=== PATIENT | female | born 1950 | race Caucasian/White ===

== ENCOUNTER → 2022-04-09 | Outpatient (CLI) | payer MEDICARE, SELFPAY | END | disposition home or self-care (01) | LOC: LAB 15:12 | PROVIDERS: PCP Preventive Medicine Occupational Medicine; Visit Provider Preventive Medicine Occupational Medicine | DX: Z01.84 Encounter for antibody response examination (principal) | CPT/HCPCS: 36415; 86769 ==

== ENCOUNTER → 2022-11-17 | Outpatient (CLI) | payer MEDICARE, OTHER, SELFPAY ==
--- NOTE | 2022-11-17 13:57 | CT_ITS ---
EXAM: CT LEFT LOWER EXTREMITY WITHOUT INTRAVENOUS CONTRAST CLINICAL INDICATION: LEFT KNEE TECHNIQUE: Helically acquired images were obtained of the left lower extremity without intravenous contrast. 2-D reformats were performed by the technologist. CTDIvol = ( 19.32 ) mGy, DLP = ( 4127.99 ) mGycm This CT exam was performed using one or more of the following dose reduction techniques: automated exposure control, adjustment of the mA and/or kV according to patient size, and/or use of iterative reconstruction technique. This report was created using 5 Minutes report Diassess technology. COMPARISON: None. FINDINGS: Presumed preoperative planning study. No acute or healing fracture or malalignment. No unusual lytic or sclerotic lesions of bone. Severe tricompartmental osteoarthrosis involving the left knee with multiple intra-articular ossific bodies posteriorly. Meniscal chondrocalcinosis, medial and lateral. Plantar and posterior calcaneal enthesopathy. No other soft tissue abnormalities. CT/Extremity Lower without Contra IMPRESSION: Preoperative planning study showing severe tricompartmental arthrosis of the knee with multiple intra-articular ossific bodies posterolaterally. Electronically Signed: Torres Barksdale MD at 3:14 EDT ,
== END | disposition home or self-care (01) ==
LOC: CT 13:36
PROVIDERS: PCP Preventive Medicine Occupational Medicine; Referring Provider Orthopaedic Surgery; Visit Provider Orthopaedic Surgery
DX: M17.12 Unilateral primary osteoarthritis, left knee (principal)
CPT/HCPCS: 73700

== ENCOUNTER 2022-11-24 16:26 | Observation (INO) | payer MEDICARE, OTHER, SELFPAY ==
--- NOTE | 2022-11-13 13:14 | EKG12_ITS ---
Test Reason : PREOP Blood Pressure : / mmHG Vent. Rate : 075 BPM Atrial Rate : 075 BPM P-R Int : 160 ms QRS Dur : 080 ms QT Int : 388 ms P-R-T Axes : 024 -27 039 degrees QTc Int : 433 ms Normal sinus rhythm Normal ECG Confirmed by WILLAM ORDONEZ, PRANEETH ([id number]), tape editor MARIA L ZUNIGA ([id number]) on 11/17/2022 10:44:29 AM Referred By: NEREYDA Confirmed By:SERGEY QUARLES MD
[2022-11-13 13:43] LABS: Absolute Lymphocyte Count 1.98 X10^3/uL (0.83-4.51); Absolute Neutrophil Count 3.9 X10^3/uL (2.0-7.7); Basophil# 0.09 X10^3/uL; Basophil% 1.3 % (0-1); Eosinophil# 0.23 X10^3/uL; Eosinophils% 3.4 % (0-5); Hematocrit 41.3 % (37-47); Hemoglobin 13.4 g/dL (12.0-15.0); Lymphocyte # 1.98 X10^3/ul (0.83-4.51); Lymphocyte % 28.9 % (19-41); Mean Corp Hgb Conc 32.4 g/dL (32-36); Mean Corpuscular Hgb 32.8 pg (27.0-32.0); Mean Platelet Vol. 9.4 fl (6.2-12.0); Monocyte# 0.63 X10^3/uL; Monocyte% 9.2 % (0-10); NRBC Flagged by Analyzer 0 % (0-5); Neutrophil # 3.89 X10^3/uL (2.7-7.7); Neutrophil % 56.8 % (47-70); Platelet Count 282 K/mm3 (150-450); RBC Distribution Width CV 14.4 % (11.6-14.6); RBC Distribution Width SD 53.8 fl (35.1-43.9); Red Blood Count 4.09 M/mm3 (4.2-5.4); White Blood Count 6.9 K/mm3 (4.4-11.0)
[2022-11-13 13:54] LABS: Hemoglobin A1c 5.9 % (3.8-5.6)
[2022-11-13 14:15] LABS: Albumin, Serum 3.2 g/dL (3.2-5.0); Anion Gap 8 (5-15); BUN 15 mg/dL (7-18); BUN/Creat Ratio 12.7 RATIO (10-20); Calcium,Total 9.8 mg/dL (8.5-10.1); Chloride 109 mmol/L (98-107); Creatinine, Serum 1.18 mg/dL (0.55-1.02); EST Glomerular Filtration Rate 48 mL/min (>60); Est Glom Filt Rate - Afr Amer 58 mL/min (>60); Glucose 171 mg/dL (74-106); Potassium 4.1 mmol/L (3.5-5.1); Sodium Level 142 mmol/L (136-145)
[2022-11-24] VITALS (24 sets, daily range): BP systolic 96–158; BP diastolic 50–85; PULSE 66–83; RESP 12–21; TEMP 36.1–36.7; O2SAT 85–97; BMI 45.2
--- NOTE | 2022-11-24 | KNEE_PTH ---
PATIENT: JADON BETTS LOC: [facility]3 U#:[id number] AGE/SX: 72/F ROOM: [facility] [place] RE11/24/[address]: Dr. Clifford Covarrubias DO : 1950 BED: 1 DIS: 11/25/2022 SPEC #: [id number] RECD: 11/24/22 14:49 STATUS: ALEX FELIX #: [id number] RM: 11/24/22 00:[address]: Clifford Covarrubias DEPT: SURGICAL PATHOLOGY RECD BY: Wild Arguelles ENTERED: 11/25/22 10:01 SP TYPE: TOTAL KNEE OTHR DR: Dr. Scott Weller DO Tissues: Knee, NOS Procedures: Decalcification bone/plaque Surgery Specimen Level IV HEADER OPERATION: ERAS, total knee replacement robotic arm assist PRE-OP DIAGNOSIS: Left knee osteoarthritis TISSUE SUBMITTED: Left knee bone and tissue MICROSCOPIC DIAGNOSIS Bone and soft tissue, left knee, total knee replacement/resection: Pieces of bone with degenerative osteoarthritic changes. Fibroadipose tissue, fibroconnective tissue, cartilaginous tissue and reactive synovial tissue. Changes consistent with pseudogout. LUCIANA:sherry 11/28/2022 MICROSCOPIC DESCRIPTION Slides are reviewed. GROSS DESCRIPTION Received is one container designated bone and soft tissue left knee. The specimen consists of multiple fragments of gomez-yellow bone measuring in aggregate 11.0 x 10.0 x 3.5 cm. Also in the specimen container are multiple fragments of yellow-white soft tissue and predominantly fibrocartilaginous tissue measuring in aggregate 5.5 x 2.0 x 1.0 cm. A number of bony fragments contain articular surfaces consistent with tibial plateau and femoral condyle and displaying prominent osteophyte formation, eburnation and bone erosion. Cost And Sales Record Supervisor sections are submitted in two cassettes as follows: 1 - soft tissue, 2 - bone after decalcification. / LUCIANA:sherry 11/25/2022 TC:5 CPT: 10147, 53706
[2022-11-24] MEDS: Acetaminophen 500 MG Tablet 1000 MG PO ×2 (09:01→21:45)
[2022-11-24] MEDS: Gabapentin 600 MG Tablet PO (09:02)
[2022-11-24 09:05] LABS: Bedside Glucose 146 mg/dL (74-106)
[2022-11-24] MEDS: Lactated Ringers 1,000 ML 15 ML IV (09:06)
[2022-11-24] MEDS: Magnesium 1 GM over 15 mins IV (09:20)
[2022-11-24] MEDS: Clindamycin 900 MG/50 ML BAG 75 MG IV ×2 (10:30→15:01)
[2022-11-24] MEDS: TXA 1000mg in NS100 100ml (IVPB at Incision) 660 MG IV (10:45)
[2022-11-24] MEDS: JPS (Morphine 10mg/ml) OPERA.SITE (11:34)
[2022-11-24] MEDS: TXA 1000mg in NS100 100ml (IVPB at Closure) 660 MG IV (11:53)
--- NOTE | 2022-11-24 12:03 | PCM.OPRPT ---
Report of Operation Date of Procedure: 11/24/22 Pre-Operative Diagnosis: OA left knee Post-Operative Diagnosis: same Surgery/Procedure Performed:: Left TKR Description of Surgical Findings:: Report of Operation Date of Procedure: 11/24/2022 Preoperative Diagnosis: [ left knee primary osteoarthritis Postoperative Diagnosis: [left ] knee primary osteoarthritis Operation: Robotic Assisted Knee Total Arthroplasty, [left ] knee Surgeon: Dr Clifford Covarrubias DO Preparation Supervisor Freezing: Jose De Jesus Munson PA-C Anesthesia: General Anesthesiologist: Kale Alvarez M.D. Findings: Stable knee with good patella tracking Specimen(s): Bony cuts Complications: No intraoperative complications Estimated Blood Loss: 30 cc IV Fluids: 1000 cc crystalloid Implants Used: 1.[employer] press-fit CR size 3 femur 2. [employer] size 3 tibia 3. 9 mm CS polyethylene 4. 35 mm patella Brief History Operative Indications: [ (72 y/o female) ] with history of [left ] knee osteoarthrosis with radiographic findings with loss of joint space, osteophyte formation and subchondral sclerosis. Failed conservative measures as mentioned in the H&P. Discussion of total knee arthroplasty as well as risk and benefits were discussed with the patient including but not limited to blood loss, DVTs, PEs, neurovascular damage, general risk of anesthesia including loss of life, and stiffness or instability were also discussed with the patient. Patient demonstrated understanding and was able to sign informed consent. Procedure: On the date of procedure, patient's [left ] lower extremity was marked in the preoperative area. The patient was then taken back to the operating room where that patient was placed on the table in the supine position. All bony prominences were identified and well-padded. Anesthesia assumed control of the C-spine and airway throughout the remainder of the procedure. A tourniquet was placed on the [left ] upper thigh and the leg was prepped in a sterile fashion. The surgeon then scrubbed at this time. Upon reentering the room, the [left ] lower extremity was draped in a standard orthopedic fashion. A timeout was then called and everyone agreed upon the side, the site, the procedure to be performed, patient's identity and antibiotics given. Esmarch bandage was used to exsanguinate the extremity and the tourniquet was placed up to 250 mmHg with the knee in flexion. A midline skin incision was made and a sharp dissection was taken down through skin, subcutaneous tissue and fat. The standard medial parapatellar incision was made and the patella was subluxed laterally. An appropriate deep MCL release was done and the fat pad was resected. Our attention was then directed to the patella. The patella was everted and a flat resection was made. The knee was then flexed up and 2 femoral pins were placed inside the incision and 2 tibial pins were placed outside the incision in the medial tibia bicortically. Once this was completed, the 2 checkpoints in the femur and tibia were placed. Knee was then flexed up and the bony landmarks were registered. Once the was completed, the knee taken through range of motion and manually stressed allowing us to plan for an appropriate tibial cut. The robotic arm was brought into the field sterilely and checkpoint and saw were registered. Based on the patient's deformity, the tibial cut was made in [1 degree of valgus ]. At this time, the tensioner was then placed in the joint and ligament tension was checked at 90 degrees and full extension. Based on the patient's ligamentous tension, appropriate adjustments were made to the operative plan and ligament releases were done. Once we were happy with our operative plan with balanced flexion and extension gaps, our attention was directed to the femur. The robot was brought into the field sterilely and registered. Posterior condylar cuts, anterior chamfer cuts and anterior cuts were appropriately made for a [ size 3 ] femur. When these were completed, the saws were switched out in the distal femoral and posterior chamfer cuts were made. Protecting the soft tissue throughout this time. A [size 3 ] base plate was selected. The knee was flexed to 90 degrees and soft tissues and posterior osteophytes were removed from the joint. 40 cc of the periarticular injection was injected into the posterior medial corner of the joint. The appropriate trials were then placed on the femur and tibia. A trial polyethylene was trialed to ensure proper balancing and stability of the knee. The appropriate tibial internal rotation was then marked with a bovie. Our attention was then directed to the patella. The lug holes were drilled and the patella trial was placed. Patellar tracking was checked and deemed appropriate. Once we were happy, lug holes were drilled for the femur and trial components were removed. The tibia was subluxed and pinned into place and the keel was punched and drilled appropriately. Final components were verified and opened. The wound was copiously irrigated with normal saline. The components were impacted into place with the tibia, femur and finally the patella. The trial poly component was placed and the knee was placed in full extension. The tracking, alignment and balance were verified and a [9 mm CS ] polyethylene component was placed. Once the final components were placed an Irrisept lavage was performed and the wound was copiously irrigated with normal saline solution and the periarticular injection was given. the wound was closed in a layer-meza fashion using #1 vicryl interrupted sutures for the arthrotomy, 2-0 interrupted vicryl suture for the subcuticular layer and lakshmi for final skin closure. A sterile compressive dressing was then placed. The patient was then awakened from anesthesia, transferred to the rcummings and transferred to the PACU for recovery. My physician assistant brand manager was a vital part of this case. He was important in appropriate retraction during the case, and protection of soft tissues during bony cuts. His intimate knowledge of the case and my steps aided in safe and expedient completion of the procedure as well as appropriate position of the leg during the case. He was also vital in assisting with closure under my direct supervision. Due to the complexity of this case, robotic arm was used to assist in the surgery to improve accuracy and clinical outcomes. Post-op Plan: DVT ppx; ASA 81 mg BID, thigh high compression stockings Follow up: in office in 2 weeks for wound check PT: to start POD #0 at hospital, outpatient PT should be arranged. Preoperative antibiotic: Clindamycin 900 mg IV Clifford Covarrubias DO Surgeon: Clifford Covarrubias stone belt sander: Jose De Jesus Munson Type of Anesthesia: General Anesthesiologist: Kale Alvarez Estimated Blood Loss (mL): 30 cc Fluids Replaced: 1000 cc crystalloid Admit VTE Documentation VTE Present on Admission: No VTE Mechan Device Prophylaxis: SCD's VTE Pharm Prophylaxis ordered?: Yes
--- NOTE | 2022-11-24 12:45 | RAD_ITS ---
STUDY: X-RAY - LEFT KNEE REASON FOR EXAM: Female, 72 years old. Postop from knee surgery TECHNIQUE: 2 view(s) of the knee. COMPARISON: None. FINDINGS: Patient is postop from left knee replacement surgery. Components demonstrate anatomic alignment. No plain film evidence of postoperative complication. Normal postoperative soft tissue swelling and subcutaneous emphysema. RAD/Knee 1 or 2 Views IMPRESSION: Replaced left knee joint demonstrates anatomic alignment, no plain film evidence of postoperative complication Electronically Signed: Abilio Muro MD at 13:01 EDT ,
[2022-11-24] MEDS: Lactated Ringers 1,000 ML 999 ML IV (12:54)
[2022-11-24] MEDS: Lactated Ringers 1,000 ML 125 ML IV (13:48)
[2022-11-24 14:21] LABS: Bedside Glucose 182 mg/dL (74-106)
[2022-11-24] MEDS: Ondansetron 4 MG/2 ML Vial IV (18:21)
[2022-11-24] MEDS: 0.9% Normal Saline 1,000 ML 125 ML IV (18:21)
[2022-11-24] MEDS: Atorvastatin Calcium 10 MG Tablet PO (21:45)
[2022-11-24] MEDS: Latanoprost 0.005% 1 Bottle 1 DRP EACH EYE (21:45)
[2022-11-24] MEDS: APIXABAN 5 MG TABLET PO (21:45)
[2022-11-24] MEDS: proMETHazine 25 MG/ML Syringe 12.5 MG IM (22:30)
[2022-11-25] MEDS: oxyCODONE 5 MG Tablet PO ×2 (01:48→10:31)
[2022-11-25] MEDS: 0.9% Normal Saline 1,000 ML 125 ML IV (01:51)
[2022-11-25] MEDS: Acetaminophen 500 MG Tablet 1000 MG PO (05:41)
[2022-11-25 05:49] VITALS: BP 125/61; PULSE 87; RESP 18; TEMP 36.6; O2SAT 94
--- NOTE | 2022-11-25 07:46 | PCM.PN.ORT ---
Subjective Subjective Patient lying in bed sleeping. Patient states pain has been very well managed. Patient denies any chest pain, shortness of breath, calf pain, nausea vomiting. Patient states she is ready for discharge home. Patient states she was unable to go home postoperatively yesterday due to nausea. She feels much better today per patient. Patient has all of her home-going medications, including her pain medication, and Eliquis for postop anticoagulation. Objective Data Objective Data Vital Signs: Vital Signs Temp Pulse Resp BP Pulse Ox O2 Del Method O2 Flow Rate 97.8 F 87 18 125/61 H 94 Nasal Cannula 2 11/25/22 05:49 11/25/22 05:49 11/25/22 05:49 11/25/22 05:49 11/25/22 05:49 11/25/22 05:49 11/25/22 05:49 Oxygen Flow Rate (L/min) 2 Oxygen Delivery Method Nasal Cannula Weight: 105 kg Body Mass Index (BMI) 45.2 Intake & Output: Intake and Output for Last 24 Hours 11/23/22 11/24/22 11/25/22 23:59 23:59 23:59 Intake Total 1698.25 / 1698.25 1137.5 / 1137.5 Balance 1698.25 / 1698.25 1137.5 / 1137.5 Lab / Micro Data Result Diagrams: 11/13/22 13:25 11/13/22 13:25 Labs: Laboratory Results - last 24 hr 11/24/22 08:26: POC Glucose 146 H 11/24/22 13:33: POC Glucose 182 H Micro: Microbiology 11/13/22 13:25 Swab (Method) Nasal Screen MRSA/MSSA - Final Radiography Diagnostic Testing: Radiology Impression Knee X-Ray 11/24/22 12:45 IMPRESSION: Replaced left knee joint demonstrates anatomic alignment, no plain film evidence of postoperative complication Electronically Signed: Abilio Muro MD at 13:01 EDT , Physical Exam Narrative Exam I found patient lying comfortably in bed sleeping. Patient was easy to awake. Patient no respiratory distress speaking in full sentences. Full range of motion of the upper extremities without limitations. Exam of the left knee, cool to touch nonerythematous. Patient does have some diffuse postop swelling. No calf tenderness. Neurovascular is otherwise intact. Const alert and oriented x3 General Appearance: cooperative HEENT normocephalic Eyes PERRL Resp normal respiratory effort Effort and Inspection: able to speak in complete sentences Extremity normal capillary refill Skin no rashes or lesions noted Neuro CN's II-XII intact bilaterally Psych mental status grossly normal Assessment & Plan Assessment/Plan (1) Status post total left knee replacement not using cement: PLAN: 1. Continue all pain medications as prescribed 2. Eliquis as prescribed x30 days for postop DVT prophylaxis 3. Encourage incentive spirometry 4. Weight-bear as tolerated with walker 5. Patient can shower 11/28/2022 6. Discharge home today after a.m. therapy 7. Continue ice to knee as prescribed 8. Continue outpatient physical therapy at [facility] 9. Follow-up as scheduled
[2022-11-25] MEDS: Pantoprazole Sodium 40 MG Tablet PO (08:23)
[2022-11-25] MEDS: Fluticasone 0.05% 1 SPRAY NASAL.SRY NASAL (08:23)
[2022-11-25] MEDS: APIXABAN 5 MG TABLET PO (08:23)
[2022-11-25] MEDS: Allopurinol 300 MG Tablet PO (08:23)
[2022-11-25] MEDS: Bisoprolol Fumarate 5 MG Tablet PO (08:23)
[2022-11-25 08:52] VITALS: BP 123/62; PULSE 88; RESP 16; TEMP 36.6; O2SAT 94
--- NOTE | 2022-11-25 09:45 | CASEMGMT ---
ALVERTO SNIDER Assessment: Face to Face with pt for initial transition planning/care coordination assessment. RN AGATHA introduced self and role at [facility], pt voices understanding and consents to assessment. Pt is A/O x4 and answers all questions appropriately at this time. Pt sitting up in chair in no distress with at bedside. Care providers, pharmacy, and demographics verified/updated. Admitting Dx: L total knee with wilson PCP:Janee Specialists:robert Covarrubias Preferred Pharmacy: [facility] Insurance: [facility], [facility] Supp Prescription Benefit: yes LNOK: Geronimo Salomon, Living Arrangements: Pt lives with in a single story home with 3 steps to enter with a rail on both sides. Pt states she was I in ADL's and denies concerns at home. Pt able to assist her if needed post surgery. Transportation: Pt drives self and denies concerns with transportation. to transport post op until pt can again. DME/HHC/SNF: Pt has a FWW, BSC, shower bench at home. [facility] and denies SNF stays. Pt states no concerns with going home at time of dc. Pt has already picked up her rx including eliquis prior to surgery. Pt has therapy set up at [facility] on Thursday at 1030am. Pt states no further concerns/needs. CM to follow. Advised pt to ask CM if any further question/concerns/needs arise, voices understanding. Pt Goal: Home with outpt therapy already set up Plan: Home with outpt therapy already set up
== END 2022-11-25 10:40 | disposition home or self-care (01) ==
LOC: SDC 17:24 → MS3 17:24
PROVIDERS: Anesthesiology; Admitting Provider Orthopaedic Surgery; PCP Preventive Medicine Occupational Medicine; Referring Provider Orthopaedic Surgery; Visit Provider Orthopaedic Surgery
PROC: 0SRD0JZ Replacement of Left Knee Joint with Synthetic Substitute, Open Approach (ICD-10-PCS; CPT 27447; principal; 2022-11-24 10:00)
DX: M17.12 Unilateral primary osteoarthritis, left knee (principal); Z79.899 Other long term (current) drug therapy; Z79.82 Long term (current) use of aspirin; Z86.16 Personal history of COVID-19; M10.9 Gout, unspecified; K21.9 Gastro-esophageal reflux disease without esophagitis; K76.0 Fatty (change of) liver, not elsewhere classified; E78.00 Pure hypercholesterolemia, unspecified; I10 Essential (primary) hypertension; Z86.711 Personal history of pulmonary embolism; G47.30 Sleep apnea, unspecified; Z79.01 Long term (current) use of anticoagulants; Z87.891 Personal history of nicotine dependence
CPT/HCPCS: 27447; S2900; 01402; 64447; 36415; 73560; 80048; 82040; 82962; 83036; 83735; 85025; 87081; 88305; 88311; 93005; 96361; 96372; 96374; 97162; 99221; C1776; J7030; J7120; G0378; J2405; J3475

== ENCOUNTER 2022-11-27 16:10 | Inpatient (IN) | payer MEDICARE, OTHER, SELFPAY ==
[2022-11-27 16:17] VITALS: BP 135/76; PULSE 81; RESP 16; TEMP 36.6; O2SAT 92; O2SAT 96; BMI 45.1
--- NOTE | 2022-11-27 17:35 | RAD_ITS ---
INDICATION: pt test positive for tb EXAMINATION/TECHNIQUE: X-RAY - XR Chest 2 Views COMPARISON: None. FINDINGS: LINES/DEVICES: None. LUNGS: No consolidation, edema or effusion. There is focal left midlung infiltrate. No pneumothorax. MEDIASTINUM AND CARDIOVASCULAR STRUCTURES: Cardiac silhouette not enlarged. Central airways and mediastinal contour are unremarkable. BONES AND SOFT TISSUES: Degenerative vertebral changes. RAD/Chest PA and Lateral IMPRESSION: Left mid lung focal infiltrate. Electronically Signed: Chavo Walter DO at 18:58 EDT Reading Location ID and State: [facility] / [place] Tel [phone], Service support ,
--- NOTE | 2022-11-27 19:19 | HP.PCM_ITS ---
HPI - General General Date of Admission: 11/27/22 Date of Service: 11/27/22 Chief Complaint: Here for rehabilitation. HPI Narrative JADON BETTS, is a 72 Female who presents with followin11/24/2022 Admit to [facility]. 11/24/2022 Dr. Covarrubias performed left total knee arthroplasty. 11/25/2022 Patient discharged home. Patient failed home discharge, unable to care for her at home. 11/27/2022 Admit to TCU with debility, here for rehabilitation, strengthening, prior to discharge home with . [facility] Medical History Arthritis Cataract COVID-19 CPAP (continuous positive airway pressure) dependence Fatty liver Former smoker Gastric reflux Glaucoma Gout Heartburn High cholesterol History of echocardiogram History of edema History of endometriosis History of GI bleed History of hiatal hernia History of irregular heartbeat History of stress test Hypertension MSSA (methicillin susceptible Staphylococcus aureus) (~2014) Plantar fasciitis Pulmonary embolism Scarring of lung Seasonal allergies Shortness of breath on exertion Sleep apnea Wears glasses Wears partial dentures Home Medications acetaminophen 650 mg tablet,extended release 1,300 mg PO Q12H Pain 11/13/22 [History Last Taken Unknown] allopurinol 300 mg tablet 300 mg PO DAILY Gout 11/13/22 [History Last Taken Unknown] ascorbic acid (vitamin C) 500 mg tablet (Vitamin C) 500 mg PO DAILY Supplement 11/13/22 [History Last Taken Unknown] ascorbic acid 7.5 mg-vit E 7.5 unit-biotin 1,250 mcg chewable tablet (Hair,Skin,Nails with Biotin) 1 tab PO DAILY Supplement 11/13/22 [History Last Taken Unknown] aspirin 81 mg capsule 1 mg PO DAILY Heart 11/13/22 [History Last Taken 11/18/22] bisoprolol fumarate 5 mg tablet 5 mg PO DAILY BP 11/13/22 [History Last Taken 11/24/22 07:00] cetirizine 5 mg tablet 10 mg PO DAILY Allergies 11/13/22 [History Last Taken Unknown] cholecalciferol (vitamin D3) 125 mcg (5,000 unit) tablet (Vitamin D3) 125 mcg PO DAILY Supplement 11/13/22 [History Last Taken Unknown] fluticasone propionate 50 mcg/actuation nasal spray,suspension (Flonase Allergy Relief) 1 spray intranasal DAILY Allergies 11/13/22 [History Last Taken Unknown] multivitamin-ferrous fumarate-folic acid 18 mg-400 mcg tablet (Centrum Women) 1 tab PO DAILY Supplement 11/13/22 [History Last Taken Unknown] pantoprazole 40 mg tablet,delayed release 40 mg PO DAILY GERD 11/13/22 [History Last Taken 11/24/22 07:00] simvastatin 20 mg tablet 20 mg PO DAILY Cholesterol 11/13/22 [History Last Taken Unknown] latanoprost 0.005 % eye drops, emulsion 1 drp EACH EYE QPM Eye Drops 11/24/22 [History Last Taken Unknown] acetaminophen 500 mg tablet 1,000 mg PO Q8H Pain 11/27/22 [History Last Taken Unknown] apixaban 2.5 mg tablet (Eliquis) 2.5 mg PO BID Blood thinner 11/27/22 [History Last Taken Unknown] oxycodone 5 mg tablet 5 - 10 mg PO Q4H PRN Pain 6-10 11/27/22 [History Last Taken Unknown] scopolamine base 1 mg over 3 days transdermal patch 1 patch transdermal Q3D PRN Nausea 11/27/22 [History Last Taken Unknown] sennosides 8.6 mg-docusate sodium 50 mg tablet (Senna Plus) 1 tab-cap PO DAILY Constipation 11/27/22 [History Last Taken Unknown] Allergy/AdvReac Type Severity Reaction Status Date / Time cefazolin [From [facility]] AdvReac Nausea Verified 11/24/22 08:28 Iodinated Contrast Media [CT] AdvReac Itching Verified 11/24/22 08:28 Surgical History H/O foot surgery (~1972) History of back surgery (~2014) History of cholecystectomy (~1994) History of cystoscopy (~1970) History of dilation and curettage (~1979) History of hysterectomy (~1983) History of oophorectomy (~1966) History of rotator cuff surgery (~2015) History of salpingectomy (~1975) Social History (Updated 11/27/22 @ 19:[address] Jose Luis Bird MD) household members: spouse Smoking Status: Former smoker alcohol intake: former substance use type: does not use ROS Constitutional Constitutional: Denies chills, fever(s) or weight gain ENT HEENT: Denies headache(s), nasal congestion or nasal discharge Cardiovascular Cardiovascular: Denies chest pain or palpitations Respiratory/Chest Respiratory/Chest: Denies cough, excessive phlegm production or shortness of breath with exertion Gastrointestinal Gastrointestinal: Denies abdominal pain, nausea or vomiting Genitourinary Genitourinary: Denies dysuria Musculoskeletal Musculoskeletal: Denies joint pain or joint swelling Integumentary Integumentary: Denies rash or wounds Neurologic Neurologic: Denies focal weakness, numbness or tingling Psychiatric Psychiatric: Denies anxiety, auditory hallucinations, depression, homicidal ideation or suicidal ideation Vital Signs Vital Signs Vital Signs: 11/27/22 16:17 Temperature 97.9 F Temperature Source Temporal Pulse Rate 81 Respiratory Rate 16 Blood Pressure 135/76 H Blood Pressure Mean 95 Blood Pressure Source Monitor Blood Pressure Position Sitting Blood Pressure Location Left Arm Pulse Ox 92 Oxygen Delivery Method Room Air Weight Weight: 104.893 kg Body Mass Index (BMI) 45.1 Physical Exam Const alert General Appearance: cooperative HEENT normocephalic Eyes PERRL and EOMs intact bilaterally Neck supple, no JVD and no carotid bruits Resp normal respiratory effort, normal air movement and clear to auscultation bilaterally Cardio regular rate and regular rhythm GI normal to inspection, nondistended, normoactive bowel sounds, non-tender and non-distended Extremity normal capillary refill Extremity Narrative: Left anterior knee dressing. General Extremity: Negative for edema Skin no rashes or lesions noted General Skin Exam: no breakdown Psych affect normal Appearance: appropriate Results Radiology Impression Chest X-Ray 11/27/22 17:35 IMPRESSION: Left mid lung focal infiltrate. Electronically Signed: Chavo Walter DO at 18:58 EDT Reading Location ID and State: [facility] / [place] Tel [phone], Service support , Assessment & Plan Assessment/Plan (1) Debility: (2) Osteoarthritis of left knee: (3) Status post total left knee replacement not using cement: (4) Pulmonary embolism: (5) Hypertension: (6) GERD (gastroesophageal reflux disease): (7) Hyperlipidemia: (8) Gout: (9) Allergic rhinitis: (10) Glaucoma: PLAN: Plan 72 year old female with belwo past medical history hospitalized for left total knee replacement 11/24/[address] Covarrubias, failed home discharge, admitted to TCU with debility, here for rehabilitation, strengthening, prior to discharge home with . * Debility - PT/OT. * Pain - Tylenol 1000mg q8, Oxycodone 5-10mg q4h prn. * Bowel - senna/colace 2 tablets bid, Dulcolax 10mg pr x 1 prn, MOM 30ml po x 1 prn. * Adult immunization - Administer pneumonia vaccine, covid19 vaccine, flu vaccine as appropriate. * DVT prophylaxis - Eliquis 5mg bid thru 12/28/2022 (higher dose, prolonged course due history of pulmonary embolism from covid19) * Gout - Allopurinol 300mg daily. * Vitamin C deficiency - Vitamin C 500mg daily. * CV prophylaxis - Aspirin 81mg daily starting 12/29/2022. * Hyperlipidemia - Atorvastatin 10mg qhs. * Hypertension - Bisoprolol 5mg daily. * Allergic rhinitis - Fluticasone 1 spray nasal daily, Loratadine 10mg daily. * Glaucoma - Latanoprost 1gtt qhs. * Nutrition - MVI daily. * GERD - Pantoprazole 40mg daily. * Nausea - Scopolamine 1mg patch 1 patch td q72h prn.
--- NOTE | 2022-11-27 20:08 | NURSING ---
During initial assessment, left knee noted to be reddened, warm, and have 2+ pitting edema. Knee is very painful. Dr. Bird paged with immediate callback. New orders for STAT labs entered as well as doppler and oral antibiotics. RN aware.
[2022-11-27] MEDS: Acetaminophen 500 MG Tablet 1000 MG PO (20:20)
[2022-11-27] MEDS: Atorvastatin Calcium 10 MG Tablet PO (20:21)
[2022-11-27] MEDS: oxyCODONE 5 MG Tablet PO (20:30)
[2022-11-27] MEDS: Scopolamine 1mg/72hr Patch 1 PATCH TD (20:31)
[2022-11-27] MEDS: Latanoprost 0.005% 1 Bottle 1 DRP OPHTHALMIC (20:32)
[2022-11-27] MEDS: Clindamycin HCl 150 MG Capsule 300 MG PO (20:37)
[2022-11-27] MEDS: Doxycycline 100 MG CAPSULE PO (20:37)
[2022-11-27 20:42] LABS: Absolute Lymphocyte Count 2.08 X10^3/uL (0.83-4.51); Absolute Neutrophil Count 8.1 X10^3/uL (2.0-7.7); Basophil# 0.08 X10^3/uL; Basophil% 0.7 % (0-1); Eosinophil# 0.14 X10^3/uL; Eosinophils% 1.2 % (0-5); Hematocrit 37.2 % (37-47); Hemoglobin 11.7 g/dL (12.0-15.0); Lymphocyte # 2.08 X10^3/ul (0.83-4.51); Lymphocyte % 17.7 % (19-41); Mean Corp Hgb Conc 31.5 g/dL (32-36); Mean Corpuscular Hgb 32.4 pg (27.0-32.0); Mean Platelet Vol. 9.6 fl (6.2-12.0); Monocyte# 1.21 X10^3/uL; Monocyte% 10.3 % (0-10); NRBC Flagged by Analyzer 0.2 % (0-5); Neutrophil # 8.13 X10^3/uL (2.7-7.7); Neutrophil % 69.2 % (47-70); Platelet Count 311 K/mm3 (150-450); RBC Distribution Width SD 53.9 fl (35.1-43.9); Red Blood Count 3.61 M/mm3 (4.2-5.4); White Blood Count 11.8 K/mm3 (4.4-11.0)
[2022-11-27 20:52] LABS: Anion Gap 3 (5-15); BUN 25 mg/dL (7-18); BUN/Creat Ratio 19.7 RATIO (10-20); Calcium,Total 10.7 mg/dL (8.5-10.1); Chloride 103 mmol/L (98-107); Creatinine, Serum 1.27 mg/dL (0.55-1.02); EST Glomerular Filtration Rate 44 mL/min (>60); Erythrocyte Sedimentation Rate 70 mm/hr (0-30); Est Glom Filt Rate - Afr Amer 53 mL/min (>60); Estimated Creatinine Clearance 28.76 ml/min; Glucose 135 mg/dL (74-106); Potassium 4.3 mmol/L (3.5-5.1); Sodium Level 135 mmol/L (136-145)
[2022-11-28] MEDS: oxyCODONE 5 MG Tablet PO ×4 (02:35→22:16)
[2022-11-28] MEDS: Acetaminophen 500 MG Tablet 1000 MG PO ×3 (06:10→20:44)
[2022-11-28] MEDS: Allopurinol 300 MG Tablet PO (06:11)
[2022-11-28] MEDS: Bisoprolol Fumarate 5 MG Tablet PO (06:11)
[2022-11-28] MEDS: Loratadine 10 MG Tablet PO (06:11)
[2022-11-28] MEDS: Senna/Docusate Sodium 1 Tablet 2 TABLET PO ×2 (06:11→17:29)
[2022-11-28] MEDS: Pantoprazole Sodium 40 MG Tablet PO (06:11)
[2022-11-28] MEDS: APIXABAN 5 MG TABLET PO ×2 (06:12→17:30)
[2022-11-28] MEDS: Doxycycline 100 MG CAPSULE PO ×2 (06:12→17:29)
[2022-11-28] MEDS: Clindamycin HCl 150 MG Capsule 300 MG PO ×2 (06:12→17:29)
[2022-11-28] MEDS: Magnesium Hydroxide 30 ML UDC PO (07:14)
[2022-11-28] MEDS: Multivitamins,Ther W-Minerals Tablet 1 TABLET PO (07:15)
[2022-11-28] MEDS: Ascorbic Acid 500 MG Tablet PO (07:15)
[2022-11-28 09:45] VITALS: PULSE 68; RESP 18; O2SAT 93
--- NOTE | 2022-11-28 09:55 | NURSING ---
Addendum entered by Erika Gutiérrez 11/28/22 10:38: doppler negative Original Note: vacular tech here to for doppler of LT leg
--- NOTE | 2022-11-28 11:35 | PCM.PN.DRR ---
TCU RX Drug Regimen Review Subjective: 72 YOF admitted to TCU 11/27 S/P l-total knee arthroplasty. Initially discharged home, had a fall, then got admission to TCU. Admitted to TCU for strengthening and rehabilitation prior to discharge back to home with . Objective: Allergies cefazolin [From Anc] Adverse Reaction (Verified 11/24/22 08:28) Nausea Iodinated Contrast Media [CT] Adverse Reaction (Verified 11/24/22 08:28) Itching Current Medications Generic Name Dose Route Start Last Admin Trade Name Freq PRN Reason Stop Dose Admin Acetaminophen 1,000 mg 11/27/22 22:00 11/28/22 06:10 Acetaminophen 500 Mg Tablet PO 1,000 mg Q8H MORALES Administration Allopurinol 300 mg 11/28/22 06:00 11/28/22 06:11 Allopurinol 300 Mg Tablet PO 300 mg DAILY MORALES Administration Apixaban 5 mg 11/28/22 06:00 11/28/22 06:12 Apixaban 5 Mg Tablet PO 12/28/22 18:01 5 mg BID MORALES Administration Ascorbic Acid 500 mg 11/28/22 08:00 11/28/22 07:15 Ascorbic Acid 500 Mg Tablet PO 500 mg BREAKFAST COUNT INCLUDES THE [facility] Administration Aspirin 81 mg 12/29/22 08:00 Aspirin 81 Mg Tab.Chew PO BREAKFAST COUNT INCLUDES THE [facility] Atorvastatin Calcium 10 mg 11/27/22 22:00 11/27/22 20:21 Atorvastatin Calcium 10 Mg Tablet PO 10 mg QHS MORALES Administration Bisacodyl 10 mg 11/27/22 19:36 Bisacodyl 10 Mg Suppository RC X1 PRN CONSTIPATION Bisoprolol Fumarate 5 mg 11/28/22 06:00 11/28/22 06:11 Bisoprolol Fumarate 5 Mg Tablet PO 5 mg DAILY COUNT INCLUDES THE [facility] Administration Clindamycin HCl 300 mg 11/27/22 20:07 11/28/22 06:12 Clindamycin Hcl 150 Mg Capsule PO 12/04/22 20:08 300 mg BID MORALES Administration Doxycycline Monohydrate 100 mg 11/27/22 20:06 11/28/22 06:12 Doxycycline 100 Mg Capsule PO 12/04/22 20:07 100 mg BID MORALES Administration Fluticasone Propionate 1 spray 11/28/22 06:00 11/28/22 07:16 Fluticasone 0.05% 1 Alexis Nasal.Sry NASAL Not Given DAILY COUNT INCLUDES THE [facility] Latanoprost 1 drp 11/27/22 22:00 11/27/22 20:32 Latanoprost 0.005% 1 Bottle OPHTHALMIC 1 drp QHS MORALES Administration Loratadine 10 mg 11/28/22 06:00 11/28/22 06:11 Loratadine 10 Mg Tablet PO 10 mg DAILY MORALES Administration Magnesium Hydroxide 30 ml 11/27/22 19:36 11/28/22 07:14 Magnesium Hydroxide 30 Ml Udc PO 30 ml X1 PRN Administration Constipation Multivitamins/Minerals 1 tablet 11/28/22 08:00 11/28/22 07:15 Multivitamins,Ther W-Minerals Tablet PO 1 tablet BREAKFAST COUNT INCLUDES THE [facility] Administration Nystatin 1 applic 11/28/22 18:00 Nystatin Powder 15gm Bottle TOPICAL BID COUNT INCLUDES THE [facility] Protocol Oxycodone HCl 5 - 10 mg 11/27/22 20:00 11/28/22 10:27 Oxycodone 5 Mg Tablet PO 5 mg Q4H PRN Administration Pain 6-10 Pantoprazole Sodium 40 mg 11/28/22 06:00 11/28/22 06:11 Pantoprazole Sodium 40 Mg Tablet PO 40 mg DAILY COUNT INCLUDES THE [facility] Administration Scopolamine HBr 1 patch 11/27/22 17:08 11/27/22 20:31 Scopolamine 1mg/72hr Patch TD 1 patch Q3D PRN Administration Nausea Senna/Docusate Sodium 2 tablet 11/28/22 06:00 11/28/22 06:11 Senna/Docusate Sodium 1 Tablet PO 2 tablet BID MORALES Administration Tuberculin PPD 0.1 ml 12/05/22 10:00 Tuberculin,Purif.Prot.Deriv. 50 Tu/Ml Vial ID 12/05/22 10:01 X1 ONE Problem List (Last Reviewed 11/27/22 @ 19:[address] 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 cement (Acute) Vital Signs Temp Pulse Resp BP Pulse Ox O2 Del Method 97.9 F 81 16 135/76 H 96 Room Air 11/27/22 16:17 11/27/22 16:17 11/27/22 16:17 11/27/22 16:17 11/27/22 16:17 11/27/22 16:17 Oxygen Delivery Method Room Air Weight: 104.893 kg Body Mass Index (BMI) 45.1 Sodium 135 mmol/L (136-145) L 11/27/22 20:24 Potassium 4.3 mmol/L (3.5-5.1) 11/27/22 20:24 Chloride 103 mmol/L (98-107) 11/27/22 20:24 Carbon Dioxide 29.0 mmol/L (21.0-32.0) 11/27/22 20:24 Anion Gap 3 (5-15) L 11/27/22 20:24 BUN 25 mg/dL (7-18) H 11/27/22 20:24 Creatinine 1.27 mg/dL (0.55-1.02) H 11/27/22 20:24 Est GFR (MDRD) Af Amer 53 mL/min (>60) L 11/27/22 20:24 Est GFR (MDRD) Non-Af 44 mL/min (>60) L 11/27/22 20:24 BUN/Creatinine Ratio 19.7 RATIO (10-20) 11/27/22 20:24 Glucose 135 mg/dL (74-106) H 11/27/22 20:24 Assessment/Plan: 1. Pain: Tylenol 1000mg PO Q8, Oxycodone 5-10mg PO Q4h PRN Pain 6-10. Please continue to monitor for S/S increased/decreased pain, PRN medication usage, oversedation and respiratory depression with narcotic use. - to date, the patient has utilized one PRN dose of medication. Pre-medication pain score rated 6/10, post-medication assessment not yet documented. It appears the patients pain is managed at this time. 2. Post-Op site infection R/O: Clindamycin 300mg PO BID thru 12/04/22, Doxycycline 100mg PO BID thru 12/04/22. Please continue to monitor for worsening S/S of infection, diarrhea, upset stomach, N/V, culture results. 3. HTN/HLD/Cardiovascular: Aspirin 81mg PO Daily (to start after completion of Eliquis), Lipitor 10mg PO QHS, Bisoprolol 5mg PO Daily. Please continue to monitor for S/S bleeding/bruising, H/H (labs stable 11/27), Bp (135/76), pulse (81 BPM), lipid panel annually. 4. Allergic Rhinitis: Flonase 1 spray nasally daily, Claritin 10mg PO Daily. Please continue to monitor for medication effectiveness, nasal irritation with nasal spray. 5. Post-OP DVT Prophylaxis: Eliquis 5mg PO BID thru 12/28/22. Please continue to monitor for S/S bleeding/bruising, S/S blood clot, H/H (labs from 11/27 stable). 6. Gout: Allopurinol 300mg PO Daily. Please continue to monitor for gout flare-ups, uric acid levels, renal function. 7. GERD: Protonix 40mg PO Daily. Please continue to monitor for GERD flare-ups. Please also encourage patient to utilize non-pharmacologic options to help minimize GERD symptoms. 8. Glaucoma: Xalatan 1 gtt QHS. Please continue to monitor for progression of glaucoma, make sure patient keeps regular eye appointments. 9. Nausea: Scopolamine patch q72hr PRN. Please continue to monitor for blurry vision, headache, drowsiness with use. -The patient has had a patch applied on 11/27, appears patient tolerating at this time. 10. General Wellness: Ascorbic Acid 500mg PO Daily, Multivitamin 1 tab PO daily. 11. Skin Integrity: Nystatin topically BID. Please continue to monitor for skin redness, irritation, S/S infection. 12. Bowel: Senna/Docusate 2 tab PO BID, Dulcolax 10mg NC x1 PRN, MOM 30mL PO x1 PRN. Please continue to monitor for increased/decreased constipation and/or diarrhea. -The patient has not had a documented bowel movement since admission (<48hrs since admission). If the patient does not have a bowel movement within 48hrs of admission, please consider administering PRN medications, thank you. Assessment/Plan for indications treated with psychotropic medications: -The patient is not being maintained on any psychotropic medications at this time. Medical chart and medication regimen reviewed. The following medication irregularities or issues were identified: 1. Lipid panel: Patient is currently on Lipitor. The patient's last lipid panel per EMR review is from 2013. Please consider ordering a lipid panel if clinically indicated, thank you. Date of Note:: 11/28/22
--- NOTE | 2022-11-28 11:52 | CASEMGMT ---
Social Work Met with patient to complete initial assessment. Introduced self and role. Verified/updated contacts. Discussed code status and MOLST form. Pt confirmed DNR-CC. MOLST placed in chart. Pt agreed to have bring in copies of advanced directives. Educated to Medicare benefit. Encouraged to contact secondary insurance to ensure copay coverage. Pt's goal is to return home with . Per pt, can assist pt at home if needed. Pt has 6 LUCIO home and did not use a device at [facility]. SW to continue to follow for DC planning. Dorie Roy, CUSTOMER SERVICE REPRESENTATIVE TELLER MAID HOUSEKEEPER
--- NOTE | 2022-11-28 13:45 | NURSING ---
Allergist/Md Note; Activity Asset: Yinka Henriquez is independent in her choice of daily activities, at this time she is not interested in group activities due to her medical condition. She is welcoming to visiting w/the zipper trimmer hand and therapy dog and visiting with her family and friends however prefers to rest. She did take word search puzzles and stated she has her smartphone phone as well. Staff will continue to offer out of room activities and respect his/her right to say no.
[2022-11-28 14:00] VITALS: BP 137/57; PULSE 64; RESP 16; TEMP 36.7; O2SAT 94
[2022-11-28] MEDS: Atorvastatin Calcium 10 MG Tablet PO (20:44)
[2022-11-28] MEDS: Latanoprost 0.005% 1 Bottle 1 DRP OPHTHALMIC (20:48)
[2022-11-28] MEDS: Nystatin Powder 15gm Bottle 1 APPLIC TOPICAL (20:52)
[2022-11-29] MEDS: Acetaminophen 500 MG Tablet 1000 MG PO ×3 (06:33→22:03)
[2022-11-29] MEDS: Doxycycline 100 MG CAPSULE PO ×2 (06:33→17:20)
[2022-11-29] MEDS: Clindamycin HCl 150 MG Capsule 300 MG PO ×2 (06:33→17:20)
[2022-11-29] MEDS: Pantoprazole Sodium 40 MG Tablet PO (06:33)
[2022-11-29] MEDS: Senna/Docusate Sodium 1 Tablet 2 TABLET PO (06:33)
[2022-11-29] MEDS: Loratadine 10 MG Tablet PO (06:33)
[2022-11-29] MEDS: APIXABAN 5 MG TABLET PO ×2 (06:33→17:21)
[2022-11-29] MEDS: Nystatin Powder 15gm Bottle 1 APPLIC TOPICAL ×2 (06:33→17:21)
[2022-11-29] MEDS: Bisoprolol Fumarate 5 MG Tablet PO (06:34)
[2022-11-29] MEDS: Ascorbic Acid 500 MG Tablet PO (07:55)
[2022-11-29] MEDS: Multivitamins,Ther W-Minerals Tablet 1 TABLET PO (07:55)
[2022-11-29] MEDS: Allopurinol 300 MG Tablet PO (07:57)
[2022-11-29] MEDS: oxyCODONE 5 MG Tablet PO ×3 (09:34→22:04)
[2022-11-29 14:00] VITALS: BP 147/60; PULSE 69; RESP 16; TEMP 36.6; O2SAT 93
[2022-11-29 21:50] VITALS: O2SAT 94
[2022-11-29] MEDS: Latanoprost 0.005% 1 Bottle 1 DRP OPHTHALMIC (22:00)
[2022-11-29] MEDS: Atorvastatin Calcium 10 MG Tablet PO (22:04)
[2022-11-30 04:40] VITALS: BP 137/79; PULSE 69
[2022-11-30] MEDS: Senna/Docusate Sodium 1 Tablet 2 TABLET PO ×2 (04:54→17:11)
[2022-11-30] MEDS: Acetaminophen 500 MG Tablet 1000 MG PO ×3 (04:55→20:44)
[2022-11-30] MEDS: oxyCODONE 5 MG Tablet PO ×3 (04:55→19:38)
[2022-11-30] MEDS: Pantoprazole Sodium 40 MG Tablet PO (04:56)
[2022-11-30] MEDS: Bisoprolol Fumarate 5 MG Tablet PO (04:56)
[2022-11-30] MEDS: Clindamycin HCl 150 MG Capsule 300 MG PO ×2 (04:56→17:10)
[2022-11-30] MEDS: Doxycycline 100 MG CAPSULE PO ×2 (04:56→17:10)
[2022-11-30] MEDS: APIXABAN 5 MG TABLET PO ×2 (04:57→17:10)
[2022-11-30] MEDS: Loratadine 10 MG Tablet PO (04:57)
[2022-11-30] MEDS: Nystatin Powder 15gm Bottle 1 APPLIC TOPICAL ×2 (05:00→17:13)
[2022-11-30] MEDS: Ascorbic Acid 500 MG Tablet PO (08:14)
[2022-11-30] MEDS: Multivitamins,Ther W-Minerals Tablet 1 TABLET PO (08:14)
[2022-11-30] MEDS: Allopurinol 300 MG Tablet PO (08:14)
[2022-11-30 14:00] VITALS: BP 109/64; PULSE 85; RESP 16; TEMP 36.6; O2SAT 96
[2022-11-30] MEDS: Atorvastatin Calcium 10 MG Tablet PO (19:38)
[2022-11-30] MEDS: Latanoprost 0.005% 1 Bottle 1 DRP OPHTHALMIC (19:38)
[2022-11-30] MEDS: Scopolamine 1mg/72hr Patch 1 PATCH TD (20:44)
[2022-12-01] MEDS: oxyCODONE 5 MG Tablet PO ×4 (01:41→22:40)
[2022-12-01] MEDS: Loratadine 10 MG Tablet PO (06:17)
[2022-12-01] MEDS: Senna/Docusate Sodium 1 Tablet 2 TABLET PO ×2 (06:17→17:53)
[2022-12-01] MEDS: Clindamycin HCl 150 MG Capsule 300 MG PO ×2 (06:17→17:53)
[2022-12-01] MEDS: Doxycycline 100 MG CAPSULE PO ×2 (06:18→17:53)
[2022-12-01] MEDS: Pantoprazole Sodium 40 MG Tablet PO (06:18)
[2022-12-01] MEDS: Acetaminophen 500 MG Tablet 1000 MG PO ×3 (06:18→22:40)
[2022-12-01] MEDS: APIXABAN 5 MG TABLET PO ×2 (06:18→17:53)
[2022-12-01] MEDS: Bisoprolol Fumarate 5 MG Tablet PO (06:18)
[2022-12-01] MEDS: Nystatin Powder 15gm Bottle 1 APPLIC TOPICAL ×2 (06:23→17:55)
[2022-12-01 06:26] VITALS: BP 105/66; PULSE 67
[2022-12-01] MEDS: Ascorbic Acid 500 MG Tablet PO (07:52)
[2022-12-01] MEDS: Multivitamins,Ther W-Minerals Tablet 1 TABLET PO (07:52)
[2022-12-01] MEDS: Allopurinol 300 MG Tablet PO (07:52)
--- NOTE | 2022-12-01 11:12 | NURSING ---
Offered covid bivalent booster, education about vaccine provided. Patient refuses at this time.
[2022-12-01 14:00] VITALS: BP 127/62; PULSE 65; RESP 16; TEMP 36.2; O2SAT 96
--- NOTE | 2022-12-01 16:35 | CASEMGMT ---
Social Work BIMS () and PHQ-9 (11/10) completed for MDS assessment. Dorie Roy MSW FIRER WATERTENDER
[2022-12-01] MEDS: Atorvastatin Calcium 10 MG Tablet PO (22:40)
[2022-12-01] MEDS: Latanoprost 0.005% 1 Bottle 1 DRP OPHTHALMIC (22:40)
[2022-12-02 05:50] VITALS: BP 136/66; PULSE 80
[2022-12-02] MEDS: Bisoprolol Fumarate 5 MG Tablet PO (05:52)
[2022-12-02] MEDS: Clindamycin HCl 150 MG Capsule 300 MG PO ×2 (05:52→17:45)
[2022-12-02] MEDS: Loratadine 10 MG Tablet PO (05:53)
[2022-12-02] MEDS: Pantoprazole Sodium 40 MG Tablet PO (05:53)
[2022-12-02] MEDS: Acetaminophen 500 MG Tablet 1000 MG PO ×3 (05:53→21:37)
[2022-12-02] MEDS: Doxycycline 100 MG CAPSULE PO ×2 (05:53→17:45)
[2022-12-02] MEDS: APIXABAN 5 MG TABLET PO ×2 (05:53→17:46)
[2022-12-02] MEDS: oxyCODONE 5 MG Tablet PO ×3 (06:01→21:46)
[2022-12-02] MEDS: Ascorbic Acid 500 MG Tablet PO (07:48)
[2022-12-02] MEDS: Multivitamins,Ther W-Minerals Tablet 1 TABLET PO (07:48)
[2022-12-02] MEDS: Allopurinol 300 MG Tablet PO (07:48)
[2022-12-02 13:51] VITALS: BMI 44.6
[2022-12-02 14:00] VITALS: BP 142/55; PULSE 74; RESP 20; TEMP 36.1; O2SAT 94
--- NOTE | 2022-12-02 16:02 | NURSING ---
Addendum entered by Erika Gutiérrez 12/03/22 15:10: [facility] returned call, they will assess incision d/t being on ATB for knee redness at site then will determine if they can be removed at appt or on return to TCU Original Note: Called [facility] officeto see if we can remove sutures and lakshim awaiting for return phone call.
--- NOTE | 2022-12-02 16:15 | CHAPLAIN ---
Type of Pastoral Visit _x__ Initial Visit ___ Follow-up Visit ___ On-call Visit ___ General Patient Visit ___ Spiritual Assessment ___ Family Conference ___ Bereavement ___ Rapid Response ___ Code Blue ___ Other (describe below) Pastoral Care Referral From _x__ Patient ___ Family ___ Nurse ___ Physician ___ Retail Buyer ___ Rib Puller ___ Other (describe below) Sacrament/Intervention _x__ Active listening ___ Anointing ___ Methodist ___ Bereavement ___ Communion ___ Dea exploration ___ _x__ Life review _x__ Prayer ___ Reconciliation ___ Sacrament of Sick ___ Supportive presence ___ Wedding ___ Other (describe below) Pastoral Comments patient is an acquaintance of this sign erector and repairer; pt talks much about her current situation of health needs; pt talks about family life and her senior care years; pt has gone through many physical set backs in recent years and finds that dea in God is most helpful; pt welcomes spiritual care support and prayer; pt would like follow up visits
[2022-12-02] MEDS: Senna/Docusate Sodium 1 Tablet 2 TABLET PO (17:46)
[2022-12-02] MEDS: Atorvastatin Calcium 10 MG Tablet PO (21:37)
[2022-12-02] MEDS: Latanoprost 0.005% 1 Bottle 1 DRP OPHTHALMIC (21:38)
[2022-12-02] MEDS: Nystatin Powder 15gm Bottle 1 APPLIC TOPICAL (21:43)
[2022-12-03] MEDS: oxyCODONE 5 MG Tablet PO ×3 (02:36→22:09)
[2022-12-03] MEDS: Acetaminophen 500 MG Tablet 1000 MG PO ×3 (06:07→20:58)
[2022-12-03] MEDS: Clindamycin HCl 150 MG Capsule 300 MG PO ×2 (06:07→16:53)
[2022-12-03] MEDS: APIXABAN 5 MG TABLET PO ×2 (06:07→16:54)
[2022-12-03] MEDS: Bisoprolol Fumarate 5 MG Tablet PO (06:08)
[2022-12-03] MEDS: Pantoprazole Sodium 40 MG Tablet PO (06:08)
[2022-12-03] MEDS: Loratadine 10 MG Tablet PO (06:08)
[2022-12-03] MEDS: Doxycycline 100 MG CAPSULE PO ×2 (06:08→16:53)
[2022-12-03] MEDS: Nystatin Powder 15gm Bottle 1 APPLIC TOPICAL ×2 (06:09→16:54)
[2022-12-03] MEDS: Ascorbic Acid 500 MG Tablet PO (07:59)
[2022-12-03] MEDS: Multivitamins,Ther W-Minerals Tablet 1 TABLET PO (07:59)
[2022-12-03] MEDS: Allopurinol 300 MG Tablet PO (07:59)
--- NOTE | 2022-12-03 09:48 | CASEMGMT ---
Social Work IDT met with patient and for care plan meeting. Discussed patient's progress in PT/OT/SN. Educated to Medicare benefit. Encouraged to contact secondary insurance to ensure copay coverage. Pt is progressing well but pt did not succeed at home and admitted to TCU. Therapy offered family training. Scheduled for 12/04 at 1400. SW will coordinate DC plans when pt is ready. Will continue to follow. CHRISTINE RawlsW
[2022-12-03 14:00] VITALS: BP 147/62; PULSE 64; RESP 16; TEMP 36.2; O2SAT 94
[2022-12-03] MEDS: Senna/Docusate Sodium 1 Tablet 2 TABLET PO (16:54)
[2022-12-03] MEDS: Ondansetron ODT 4 MG Tablet 8 MG PO (17:54)
--- NOTE | 2022-12-03 17:55 | NURSING ---
Patient having N/V after evening meds. Dr. Bird updated. New order for Zofran PRN.
[2022-12-03] MEDS: Latanoprost 0.005% 1 Bottle 1 DRP OPHTHALMIC (20:59)
[2022-12-03] MEDS: Atorvastatin Calcium 10 MG Tablet PO (20:59)
[2022-12-03 21:07] VITALS: O2SAT 98
[2022-12-04] MEDS: Bisoprolol Fumarate 5 MG Tablet PO (06:15)
[2022-12-04] MEDS: APIXABAN 5 MG TABLET PO ×2 (06:15→16:40)
[2022-12-04] MEDS: Loratadine 10 MG Tablet PO (06:16)
[2022-12-04] MEDS: Acetaminophen 500 MG Tablet 1000 MG PO ×3 (06:16→21:55)
[2022-12-04] MEDS: Pantoprazole Sodium 40 MG Tablet PO (06:16)
[2022-12-04] MEDS: Nystatin Powder 15gm Bottle 1 APPLIC TOPICAL ×2 (06:22→16:41)
[2022-12-04] MEDS: Ascorbic Acid 500 MG Tablet PO (07:51)
[2022-12-04] MEDS: Multivitamins,Ther W-Minerals Tablet 1 TABLET PO (07:51)
[2022-12-04] MEDS: Allopurinol 300 MG Tablet PO (07:51)
[2022-12-04 10:00] VITALS: PULSE 69
[2022-12-04] MEDS: oxyCODONE 5 MG Tablet PO ×2 (13:16→21:58)
[2022-12-04 13:47] VITALS: BP 150/76; PULSE 74; RESP 16; TEMP 36.2; O2SAT 92
[2022-12-04] MEDS: Latanoprost 0.005% 1 Bottle 1 DRP OPHTHALMIC (21:54)
[2022-12-04] MEDS: Atorvastatin Calcium 10 MG Tablet PO (21:55)
[2022-12-05 05:40] LABS: Absolute Neutrophil Count 4.5 X10^3/uL (2.0-7.7); Basophil# 0.09 X10^3/uL; Basophil% 1.2 % (0-1); Eosinophil# 0.38 X10^3/uL; Eosinophils% 5.1 % (0-5); Hematocrit 33.9 % (37-47); Hemoglobin 10.7 g/dL (12.0-15.0); Lymphocyte % 20.1 % (19-41); Mean Corp Hgb Conc 31.6 g/dL (32-36); Mean Corpuscular Hgb 32.5 pg (27.0-32.0); Mean Platelet Vol. 9.2 fl (6.2-12.0); Monocyte# 0.93 X10^3/uL; Monocyte% 12.5 % (0-10); NRBC Flagged by Analyzer 0 % (0-5); Neutrophil % 60.3 % (47-70); Platelet Count 318 K/mm3 (150-450); RBC Distribution Width CV 14.6 % (11.6-14.6); RBC Distribution Width SD 55.1 fl (35.1-43.9); Red Blood Count 3.29 M/mm3 (4.2-5.4); White Blood Count 7.5 K/mm3 (4.4-11.0)
[2022-12-05] MEDS: Nystatin Powder 15gm Bottle 1 APPLIC TOPICAL ×2 (05:57→20:35)
[2022-12-05] MEDS: Fluticasone 0.05% 1 SPRAY NASAL.SRY NASAL (05:58)
[2022-12-05] MEDS: Bisoprolol Fumarate 5 MG Tablet PO (05:59)
[2022-12-05] MEDS: Senna/Docusate Sodium 1 Tablet 2 TABLET PO ×2 (05:59→17:12)
[2022-12-05] MEDS: Acetaminophen 500 MG Tablet 1000 MG PO ×3 (05:59→20:30)
[2022-12-05] MEDS: Loratadine 10 MG Tablet PO (05:59)
[2022-12-05] MEDS: Pantoprazole Sodium 40 MG Tablet PO (05:59)
[2022-12-05] MEDS: APIXABAN 5 MG TABLET PO ×2 (06:00→17:12)
[2022-12-05 06:01] LABS: Anion Gap 2 (5-15); BUN 20 mg/dL (7-18); Chloride 109 mmol/L (98-107); Creatinine, Serum 1.25 mg/dL (0.55-1.02); EST Glomerular Filtration Rate 45 mL/min (>60); Est Glom Filt Rate - Afr Amer 54 mL/min (>60); Estimated Creatinine Clearance 29.22 ml/min; Glucose 118 mg/dL (74-106); Potassium 4.3 mmol/L (3.5-5.1); Sodium Level 137 mmol/L (136-145)
[2022-12-05] MEDS: Allopurinol 300 MG Tablet PO (08:26)
[2022-12-05] MEDS: Multivitamins,Ther W-Minerals Tablet 1 TABLET PO (08:26)
[2022-12-05] MEDS: Ascorbic Acid 500 MG Tablet PO (08:26)
[2022-12-05] MEDS: oxyCODONE 5 MG Tablet PO ×3 (09:21→22:47)
--- NOTE | 2022-12-05 09:31 | NURSING ---
pt left for ortho appt.
--- NOTE | 2022-12-05 11:49 | CASEMGMT ---
Social Work Pt requesting to speak with this worker about DC. SW presented to room where pt and were present. Discussed DC date - all agreeable to DC 12/07, home with outpatient PT/OT. Pt prefers [facility]. SW faxed script. No DME needs. to transport. BIMS () and PHQ-9 () completed for MDS assessment. Plan: DC home 12/07 with , [facility] PT/OT CHRISTINE RawlsW
[2022-12-05 14:00] VITALS: BP 120/42; PULSE 72; RESP 19; TEMP 36.6; O2SAT 97
--- NOTE | 2022-12-05 14:05 | DS.PCM_ITS ---
Providers Date of Admission: 11/27/22 Primary Care Physician: Dr. 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 cement: Status: Acute Code(s): Z96.652 - Presence of left artificial knee joint (4) Pulmonary embolism: Status: Acute Code(s): I26.99 - Other pulmonary embolism without acute cor pulmonale (5) Hypertension: Status: Chronic Code(s): I10 - Essential (primary) hypertension (6) GERD (gastroesophageal reflux disease): Status: Acute Code(s): K21.9 - Gastro-esophageal reflux disease without esophagitis (7) Hyperlipidemia: Status: Acute Code(s): E78.5 - Hyperlipidemia, unspecified (8) Gout: Status: Acute Code(s): M10.9 - Gout, unspecified (9) Allergic rhinitis: Status: Acute Code(s): J30.9 - Allergic rhinitis, unspecified (10) Glaucoma: Status: Acute Code(s): H40.9 - Unspecified glaucoma Plan 72 year old female with belwo past medical history hospitalized for left total knee replacement 11/24/[address] Covarrubias, failed home discharge, admitted to TCU with debility, here for rehabilitation, strengthening, prior to discharge home with . * Debility - PT/OT. * Pain - Tylenol 1000mg q8, Oxycodone 5-10mg q4h prn. * Bowel - senna/colace 2 tablets bid, Dulcolax 10mg pr x 1 prn, MOM 30ml po x 1 prn. * Adult immunization - Administer pneumonia vaccine, covid19 vaccine, flu vaccine as appropriate. * DVT prophylaxis - Eliquis 5mg bid thru 12/28/2022 (higher dose, prolonged course due history of pulmonary embolism from covid19) * Gout - Allopurinol 300mg daily. * Vitamin C deficiency - Vitamin C 500mg daily. * CV prophylaxis - Aspirin 81mg daily starting 12/29/2022. * Hyperlipidemia - Atorvastatin 10mg qhs. * Hypertension - Bisoprolol 5mg daily. * Allergic rhinitis - Fluticasone 1 spray nasal daily, Loratadine 10mg daily. * Glaucoma - Latanoprost 1gtt qhs. * Nutrition - MVI daily. * GERD - Pantoprazole 40mg daily. * Nausea - Scopolamine 1mg patch 1 patch td q72h prn. Medications at Discharge Home Medications allopurinol 300 mg tablet 300 mg PO DAILY Gout 11/13/22 ascorbic acid (vitamin C) 500 mg tablet (Vitamin C) 500 mg PO DAILY Supplement 11/13/22 ascorbic acid 7.5 mg-vit E 7.5 unit-biotin 1,250 mcg chewable tablet (Hair,Skin,Nails with Biotin) 1 tab PO DAILY Supplement 11/13/22 aspirin 81 mg capsule 1 mg PO DAILY Heart 11/13/22 bisoprolol fumarate 5 mg tablet 5 mg PO DAILY BP 11/13/22 cetirizine 5 mg tablet 10 mg PO DAILY Allergies 11/13/22 cholecalciferol (vitamin D3) 125 mcg (5,000 unit) tablet (Vitamin D3) 125 mcg PO DAILY Supplement 11/13/22 fluticasone propionate 50 mcg/actuation nasal spray,suspension (Flonase Allergy Relief) 1 spray intranasal DAILY Allergies 11/13/22 multivitamin-ferrous fumarate-folic acid 18 mg-400 mcg tablet (Centrum Women) 1 tab PO DAILY Supplement 11/13/22 pantoprazole 40 mg tablet,delayed release 40 mg PO DAILY GERD 11/13/22 simvastatin 20 mg tablet 20 mg PO DAILY Cholesterol 11/13/22 latanoprost 0.005 % eye drops, emulsion 1 drp EACH EYE QPM Eye Drops 11/24/22 acetaminophen 500 mg tablet 1,000 mg PO Q8H Pain 11/27/22 scopolamine base 1 mg over 3 days transdermal patch 1 patch transdermal Q3D PRN Nausea 11/27/22 apixaban 5 mg tablet (Eliquis) 5 mg PO BID 21 days #42 tabs 12/05/22 oxycodone 5 mg tablet 5 - 10 mg PO Q4H PRN Pain 6-10 7 days #42 tabs 12/05/22 sennosides 8.6 mg-docusate sodium 50 mg tablet (Stool Softener-Stimulant Laxative) 2 tab PO BID 30 days #120 tabs 12/05/22 Hospital Course Summary of Care Provided Minutes Spent on Discharge: 35 Hospital Course: 72 year old female with below past medical history hospitalized for left total knee replacement 11/24/[address] Covarrubias, failed home discharge, admitted to TCU with debility, here for rehabilitation, strengthening, prior to discharge home with . Resident left knee incisional cellulitis treated with doxycycline, clindamycin x 7 days with resolution. Discharge home with 12/07/2022, [facility] PT/OT. Physical Exam Const alert General Appearance: cooperative HEENT normocephalic Eyes PERRL and EOMs intact bilaterally Neck supple, no JVD and no carotid bruits Resp normal respiratory effort, normal air movement and clear to auscultation bilaterally Cardio regular rate and regular rhythm GI normal to inspection, nondistended, normoactive bowel sounds, non-tender and non-distended Extremity normal capillary refill General Extremity: Negative for edema Skin no rashes or lesions noted General Skin Exam: no breakdown Psych affect normal Appearance: appropriate Medical Records Data Medical Nutrition Assessment Dietitian: Malnutrition Criteria Met Start: 11/28/22 13:36 Freq: Status: Active Protocol: Document 11/28/22 13:36 ARIEL (Rec: 11/28/22 13:36 [facility] [id number]) Nutrition Malnutrition Evidence of Malnutrition Exists Yes Malnutrition (severe): Acute Illness/Injury Evidenced By Suboptimal Energy Intake ( Severe),Weight Loss (Severe) Clinical Problem Acute Disease or Injury Related Malnutrition Etiology severe related to recent surgery and inadequate energy intake Signs/Symptoms as evidenced by eating <75% of estimated nutritional needs and 1.6% wt loss x <5 days. Status Active Problem Recommendation Dietitian Recommendations/Changes Rec continue liberal regular diet d/t signs and symptoms of malnutrition. Will readdress oral nutrition supplements at time of follow up if po intake/wt loss continues - res does not want any at this time. Weight / BMI Weight Weight: 103.011 kg Body Mass Index (BMI) 44.6 ABG / Lab / Microbiology Data Result Diagrams: 12/05/22 05:24 12/05/22 05:24 Laboratory: Laboratory Results - last 24 hr 12/05/22 05:24: WBC 7.5, RBC 3.29 L, Hgb 10.7 L, Hct 33.9 L, MCV 103.0 H, MCH 32.5 H, MCHC 31.6 L, RDW Std Deviation 55.1 H, RDW Coeff of Angie 14.6, Plt Count 318, MPV 9.2, Immature Gran % (Auto) 0.800, Neut % (Auto) 60.3, Lymph % (Auto) 20.1, [place] % (Auto) 12.5 H, Eos % (Auto) 5.1 H, Baso % (Auto) 1.2 H, Absolute Neuts (auto) 4.5, Absolute Lymphs (auto) 1.50, Nucleated RBC % 0 12/05/22 05:24: Sodium 137, Potassium 4.3, Chloride 109 H, Carbon Dioxide 26.0, Anion Gap 2 L, BUN 20 H, Creatinine 1.25 H, Estim Creat Clear Calc 29.22, Est GFR (MDRD) Af Amer 54 L, Est GFR (MDRD) Non-Af 45 L, BUN/Creatinine Ratio 16.0, Glucose 118 H, Calcium 10.0 Microbiology: Microbiology 12/01/22 05:31 Nasal Secretion SARS-CoV-2 Antigen (Rapid) - Final 11/29/22 07:00 Nasal Secretion SARS-CoV-2 Antigen (Rapid) - Final 11/27/22 22:00 Nasal Secretion SARS-CoV-2 Antigen (Rapid) - Final D/C Instructions Discharge Diet: No restrictions Discharge Activity: May Shower and Use Walker Weight Bearing Status: Weight bearing as tolerated Call your doctor if you observe: Fever of 101 or Higher, Inability to urinate, Inability to have a bowel movement, Shortness of breath, Dizziness, Fainting spells, Swelling in the ankles, Chest pain and Uncontrolled pain Additional Instructions: Discharge home with 12/07/2022, [facility] PT/[facility]. Please Follow Up With: [facility] When: As scheduled. Meaningful Use Info Meaningful Use Diagnoses (Choose all that apply): None applicable Discharge Plan Admission Admit Date/Time: 11/27/22 16:10 Primary Reason for Your Visit: Debility. Attending Provider: Jose Luis Bird Chi Primary Care Provider: Scott Weller Instructions Additional Instructions / Restrictions: Discharge home with 12/07/2022, [facility] PT/OT. Discharge Orders/Prescriptions Prescriptions: New sennosides-docusate sodium [Stool Softener-Stimulant Laxat] 8.6-50 mg Tablet 2 tab PO BID 30 Days Qty: 120 0RF oxycodone 5 mg Tablet 5 - 10 mg PO Q4H PRN (Reason: Pain 6-10) 7 Days Qty: 42 0RF Eliquis 5 mg Tablet 5 mg PO BID 21 Days Qty: 42 0RF Continued cetirizine 5 mg Tablet 10 mg PO DAILY bisoprolol fumarate 5 mg tablet 5 mg PO DAILY ascorbic acid (vitamin C) [Vitamin C] 500 mg Tablet 500 mg PO DAILY pantoprazole 40 mg tablet,delayed release (DR/EC) 40 mg PO DAILY simvastatin 20 mg tablet 20 mg PO DAILY allopurinol 300 mg tablet 300 mg PO DAILY fluticasone propionate [Flonase Allergy Relief] 50 mcg/actuation [place],Suspension 1 spray INTRANASAL DAILY Rx Instructions: administer into each nostril Centrum Women 18-400 mg-mcg Tablet 1 tab PO DAILY cholecalciferol (vitamin D3) [Vitamin D3] 125 mcg (5,000 unit) Tablet 125 mcg PO DAILY Hair, Skin, Nails with Biotin 7.5-7.5-1,250 mg-unit-mcg Tablet,Chewable 1 tab PO DAILY aspirin 81 mg Capsule 1 mg PO DAILY latanoprost 0.005 % Drops, Emulsion 1 drp EACH EYE QPM scopolamine base 1 mg over 3 days Patch 3 Day 1 patch TRANSDERMAL Q3D PRN (Reason: Nausea) acetaminophen 500 mg Tablet 1,000 mg PO Q8H Discontinued acetaminophen 650 mg Tablet Extended Release 1,300 mg PO Q12H sennosides-docusate sodium [Senna Plus] 8.6-50 mg Tablet 1 tab-cap PO DAILY oxycodone 5 mg Tablet 5 - 10 mg PO Q4H PRN (Reason: Pain 6-10) Eliquis 2.5 mg Tablet 2.5 mg PO BID Referrals / Follow Up: Scott Weller DO [Primary Care Provider] - (pt making own appt ) Disposition Disposition (needs filled in before D/C Order can be placed): Home, Self Care
[2022-12-05 20:25] VITALS: PULSE 67; RESP 16; O2SAT 96
[2022-12-05] MEDS: Atorvastatin Calcium 10 MG Tablet PO (20:30)
[2022-12-05] MEDS: Latanoprost 0.005% 1 Bottle 1 DRP OPHTHALMIC (20:30)
[2022-12-06] MEDS: Bisoprolol Fumarate 5 MG Tablet PO (05:10)
[2022-12-06] MEDS: Pantoprazole Sodium 40 MG Tablet PO (05:10)
[2022-12-06] MEDS: APIXABAN 5 MG TABLET PO ×2 (05:10→17:43)
[2022-12-06] MEDS: Acetaminophen 500 MG Tablet 1000 MG PO ×3 (05:11→20:04)
[2022-12-06] MEDS: Loratadine 10 MG Tablet PO (05:11)
[2022-12-06] MEDS: Nystatin Powder 15gm Bottle 1 APPLIC TOPICAL (05:17)
[2022-12-06 06:35] VITALS: BP 117/52; PULSE 69
[2022-12-06] MEDS: Ascorbic Acid 500 MG Tablet PO (08:27)
[2022-12-06] MEDS: Multivitamins,Ther W-Minerals Tablet 1 TABLET PO (08:27)
[2022-12-06] MEDS: Allopurinol 300 MG Tablet PO (08:27)
[2022-12-06] MEDS: oxyCODONE 5 MG Tablet PO ×3 (09:17→21:49)
[2022-12-06 09:21] VITALS: PULSE 70; RESP 16; O2SAT 96
[2022-12-06 14:00] VITALS: BP 148/64; PULSE 70; RESP 16; TEMP 36.3; O2SAT 97
[2022-12-06] MEDS: Atorvastatin Calcium 10 MG Tablet PO (20:04)
[2022-12-06] MEDS: Latanoprost 0.005% 1 Bottle 1 DRP OPHTHALMIC (20:05)
[2022-12-07] MEDS: oxyCODONE 5 MG Tablet PO ×2 (05:47→11:00)
[2022-12-07] MEDS: Pantoprazole Sodium 40 MG Tablet PO (05:48)
[2022-12-07] MEDS: Bisoprolol Fumarate 5 MG Tablet PO (05:48)
[2022-12-07] MEDS: Acetaminophen 500 MG Tablet 1000 MG PO (05:48)
[2022-12-07] MEDS: Loratadine 10 MG Tablet PO (05:48)
[2022-12-07] MEDS: APIXABAN 5 MG TABLET PO (05:48)
[2022-12-07] MEDS: Nystatin Powder 15gm Bottle 1 APPLIC TOPICAL (05:49)
[2022-12-07 06:58] LABS: Hematocrit 36.6 % (37-47); Hemoglobin 11.3 g/dL (12.0-15.0)
[2022-12-07] MEDS: Allopurinol 300 MG Tablet PO (07:46)
[2022-12-07] MEDS: Multivitamins,Ther W-Minerals Tablet 1 TABLET PO (07:46)
[2022-12-07] MEDS: Ascorbic Acid 500 MG Tablet PO (07:46)
[2022-12-07 09:16] VITALS: PULSE 72; RESP 16; O2SAT 97
[2022-12-07 10:10] VITALS: BP 129/69; PULSE 69; RESP 16; TEMP 36.6; O2SAT 97
--- NOTE | 2022-12-10 07:53 | MDS.RN ---
Information for the mds was obtained from review of the clinical record, interview of resident, staff, and direct observation of resident's care.
== END 2022-12-07 11:30 | disposition home or self-care (01) | DRG 560 ==
PROVIDERS: Admitting Provider Family Medicine Geriatric Medicine; PCP Preventive Medicine Occupational Medicine; Referring Provider Family Medicine Geriatric Medicine; Visit Provider Family Medicine Geriatric Medicine
DX: Z47.1 Aftercare following joint replacement surgery (principal); L03.116 Cellulitis of left lower limb; E78.00 Pure hypercholesterolemia, unspecified; K21.9 Gastro-esophageal reflux disease without esophagitis; M17.12 Unilateral primary osteoarthritis, left knee; J30.9 Allergic rhinitis, unspecified; I10 Essential (primary) hypertension; M10.9 Gout, unspecified; Z86.711 Personal history of pulmonary embolism; Z96.652 Presence of left artificial knee joint; Z86.16 Personal history of COVID-19; H40.9 Unspecified glaucoma; Z87.891 Personal history of nicotine dependence; Z79.899 Other long term (current) drug therapy; Z79.01 Long term (current) use of anticoagulants; Z79.82 Long term (current) use of aspirin; Z79.51 Long term (current) use of inhaled steroids
CPT/HCPCS: 36415; 71046; 80048; 85014; 85018; 85025; 85652; 87426; 87811; 93971; 97110; 97116; 97161; 97166; 97530; 97535; 97802

== ENCOUNTER → 2022-11-28 | Outpatient (CLI) | payer MEDICARE, OTHER, SELFPAY ==
--- NOTE | 2022-11-28 08:45 | VDLE_ITS ---
Reason For Study: Pain RIGHT LEFT CFV is compressible, spontaneous, phasic, GSV is normal. competent and demonstrates normal CFV is compressible, spontaneous, phasic, augmentation. competent, and demonstrates normal Procedure augmentation. This is a venous duplex using B-mode, color FV is compressible, spontaneous, phasic, flow and spectral Doppler. competent and demonstrates normal Exam performed portable in patient room. augmentation. A preliminary report was called and/or faxed POP V is compressible, spontaneous, phasic, to TCU RN. competent and demonstrates normal augmentation. T/P Trunk is compressible. PTV is compressible. LT PerV is compressible. VL/Venous Duplex US, Unilateral Interpretation Summary Deep veins of the left lower extremity are patent and compressible segmentally. There is no evidence of left lower extremity deep vein thrombosis. The left great saphenous vein jaret ears patent and compressible segmentally. Ordering Physician: JoseL uis Bird Chi Referring Physician: Scott Weller Performed By: Alannah Bales RDCS, RVT
== END | disposition home or self-care (01) ==
LOC: CVS 08:43
PROVIDERS: PCP Preventive Medicine Occupational Medicine; Referring Provider Family Medicine Geriatric Medicine; Visit Provider Family Medicine Geriatric Medicine
DX: M79.662 Pain in left lower leg (principal)
CPT/HCPCS: 93971